=== PATIENT | female | born 1940 | race Caucasian/White ===

== ENCOUNTER 2023-11-14 04:11 | Emergency (ER) | payer OTHER, SELFPAY ==
[2023-11-14 04:13] VITALS: BP 169/109
[2023-11-14 06:10] VITALS: BP 152/88
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
== END 2023-11-14 06:35 | disposition home or self-care (01) ==
LOC: EMR 04:11
PROVIDERS: EMERGENCY PHYSICIAN Emergency Medicine; FAMILY PHYSICIAN Physician Assistant Medical
DX: S29.9XXA Unspecified injury of thorax, initial encounter (principal); W01.0XXA Fall on same level from slipping, tripping and stumbling without subsequent striking against object, initial encounter; R03.0 Elevated blood-pressure reading, without diagnosis of hypertension; E11.9 Type 2 diabetes mellitus without complications; J44.9 Chronic obstructive pulmonary disease, unspecified; F90.9 Attention-deficit hyperactivity disorder, unspecified type; F43.10 Post-traumatic stress disorder, unspecified; F41.9 Anxiety disorder, unspecified; Z79.01 Long term (current) use of anticoagulants; Z86.19 Personal history of other infectious and parasitic diseases; Z90.79 Acquired absence of other genital organ(s); Z98.0 Intestinal bypass and anastomosis status; Z88.5 Allergy status to narcotic agent; Z88.8 Allergy status to other drugs, medicaments and biological substances; Z91.040 Latex allergy status
CPT/HCPCS: 99283; 71101

== ENCOUNTER 2024-04-10 07:02 | Emergency (ER) | payer OTHER, SELFPAY ==
[2024-04-10 07:03] VITALS: BP 163/98
[2024-04-10 07:19] VITALS: BMI 38.7
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
[2024-04-10 09:37] VITALS: BP 165/95
[2024-04-10 09:39] VITALS: BP 165/95
== END 2024-04-10 09:40 | disposition home or self-care (01) ==
LOC: EMR 07:02
PROVIDERS: EMERGENCY PHYSICIAN Emergency Medicine
DX: M25.552 Pain in left hip (principal); E11.9 Type 2 diabetes mellitus without complications; J44.9 Chronic obstructive pulmonary disease, unspecified
CPT/HCPCS: 99283; 73502

== ENCOUNTER → 2024-04-21 18:09 | Outpatient (REF) | payer OTHER, SELFPAY | LOC: PAVMRI 18:09 | PROVIDERS: ATTENDING PHYSICIAN Orthopaedic Surgery; FAMILY PHYSICIAN Physician Assistant Medical | DX: M25.559 Pain in unspecified hip (principal) | CPT/HCPCS: 73721 ==

== ENCOUNTER 2024-05-24 07:02 | Inpatient (IN) | payer OTHER, SELFPAY ==
[2024-05-10 13:06] VITALS: BMI 31.6
[2024-05-10 14:20] LABS: Hemoglobin 13.5 g/dL (12.0-16.0); Mean Corp Hgb Conc. 33.8 g/dL (33.0-37.0); Mean Corpuscular Hgb 29.1 pg (27.0-31.0); Mean Corpuscular Volume 86.2 fL (81.0-99.0); Mean Platelet Volume 10.1 fL (7.4-10.4); Platelet Count 306 10^3/uL (130-400); Red Blood Cell Count 4.64 10^6/uL (4.20-5.40); Red Cell Dist. Width 13.6 % (11.5-14.5); White Blood Cell Count 7.6 10^3/uL (4.8-10.8)
[2024-05-10 14:43] LABS: Glycohemoglobin (HgbA1c) 7.2 % (4.0-5.6)
[2024-05-10 14:49] LABS: ALT (SGPT) 16 U/L (0-35); AST (SGOT) 22 U/L (14-36); Albumin 4.6 g/dl (3.5-5.0); Alkaline Phosphatase 103 U/L (38-126); Blood Urea Nitrogen 21 mg/dl (7-17); Calcium 9.8 mg/dl (8.4-10.2); Carbon Dioxide 31 mmol/L (22-30); Chloride 97 mmol/L (98-107); Estimated Creatinine Clearance 67 ml/min; Glucose 142 mg/dl (70-99); Potassium 4.3 mmol/L (3.5-5.1); Sodium 138 mmol/L (135-145); Total Bilirubin 0.6 mg/dl (0.2-1.3); Total Protein 7.2 g/dl (6.3-8.2); eGFR > 60.00
[2024-05-18 11:37] VITALS: BMI 31.6
[2024-05-24] VITALS (20 sets, daily range): BP systolic 88–159; BP diastolic 55–99; BMI 31.6
[2024-05-24 08:39] LABS: Glucose - Point of Care 170 mg/dl (70-99)
[2024-05-24] MEDS: NORMOSOL-R/PLASMALYTE-A 1000 IV ×2 (08:40→15:11)
[2024-05-24] MEDS: TYLENOL 650 MG PO ×5 (08:42→23:46)
[2024-05-24] MEDS: CELEBREX 200 MG PO (08:42)
[2024-05-24 12:40] LABS: Glucose - Point of Care 169 mg/dl (70-99)
[2024-05-24] MEDS: ROXICODONE 5 MG PO (13:00)
[2024-05-24 13:26] LABS: Glucose - Point of Care 169 mg/dl (70-99)
[2024-05-24] MEDS: NOVOLOG FLEXPEN-MODERATE RESISTANCE SC (14:01)
--- NOTE | 2024-05-24 14:07 | SUR.PHASEI ---
patient in pacu - holding for room, vss, started post op meds of tylenol, roxicodone - very talkative, spinal slow to recede now moving feet - some sensation to toes.
--- NOTE | 2024-05-24 14:24 | W.PN.UPDATE ---
Update Note
Progress Note Update
L hip OA s/p L JOSHUA w/ Dr Elder 05/24/24
DVT prophylaxis - Eliquis at modified dosing, b/l venous foot pumps
- Home Eliquis dosing to be resumed POD 3 if remaining hemodynamically stable
HTN - + parameters - monitor BP
PAF w/ palps � monitor on tele
- Continue Diltiazem
- Resume Eliquis as stated above
COPD w/ asthmatic component - monitor O2
- IS
NIDDM, diet controlled, A1c 7.2 - monitor BS
- Would benefit from Cefadroxil upon d/c
GERD - add Pepcid HS
Presumed fibromyalgia - monitor pain and adjust pain meds as indicated
Hypercholesterolemia
Dilated aortic root
Chronic peripheral edema
5cm cecal tubulovillous adenoma, s/p R colon resection
Diverticulosis w/ -itis
Cholelithiasis, asymptomatic
Hep C, treated in 2013
Scoliosis
DDD
Skin CA
ADHD
PTSD
Gout
Obesity, BMI 31.6
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
--- NOTE | 2024-05-24 15:20 | PTCARENOTE ---
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
extremities, bilateral pedal pulse +2 to palpation; Call rodriguez within reach; Patient oriented to room and unit; Bed in lowest position, wheels locked; Assessment ongoing
[2024-05-24] MEDS: ADDERALL 5 MG PO (15:45)
[2024-05-24] MEDS: ROXICODONE 10 MG PO ×2 (15:51→21:49)
[2024-05-24] MEDS: ANCEF 5 IV (17:16)
[2024-05-24] MEDS: NOVOLOG FLEXPEN-MODERATE RESISTANCE 3 UNITS SC (17:18)
[2024-05-24 17:19] LABS: Glucose - Point of Care 210 mg/dl (70-99)
[2024-05-24] MEDS: SENOKOT 17.2 MG PO (20:51)
[2024-05-24] MEDS: BACTROBAN 2% OINTMENT 1 APPLIC NASAL (20:51)
[2024-05-24] MEDS: COLACE 100 MG PO (20:51)
[2024-05-24] MEDS: ELIQUIS 2.5 MG PO (20:54)
[2024-05-24 21:36] LABS: Glucose - Point of Care 204 mg/dl (70-99)
[2024-05-24] MEDS: ADDERALL PO (21:43)
[2024-05-24] MEDS: VITAMIN D3 (cholecalciferol) 100 MCG PO (21:45)
[2024-05-24] MEDS: PEPCID 20 MG PO (21:46)
[2024-05-24] MEDS: CARDIZEM CD 240 MG PO (21:46)
[2024-05-25] VITALS (7 sets, daily range): BP systolic 123–160; BP diastolic 65–98; PULSE 91–98; O2SAT 95–98
[2024-05-25] MEDS: ANCEF 5 IV (02:14)
[2024-05-25] MEDS: TYLENOL 650 MG PO ×4 (03:36→15:09)
[2024-05-25 08:01] LABS: Glucose - Point of Care 175 mg/dl (70-99)
[2024-05-25] MEDS: ROXICODONE 10 MG PO (08:20)
[2024-05-25] MEDS: ADDERALL 5 MG PO ×2 (08:21→15:09)
[2024-05-25] MEDS: COLACE 100 MG PO (08:22)
[2024-05-25] MEDS: BUMEX 2 MG PO (08:22)
[2024-05-25] MEDS: ELIQUIS 2.5 MG PO (08:22)
[2024-05-25] MEDS: SENOKOT 17.2 MG PO (08:22)
[2024-05-25] MEDS: BACTROBAN 2% OINTMENT 1 APPLIC NASAL (08:22)
[2024-05-25] MEDS: NOVOLOG FLEXPEN-MODERATE RESISTANCE 1 UNITS SC ×2 (08:23→12:10)
--- NOTE | 2024-05-25 09:57 | CM ---
Addendum entered by Ila Benjamin RN 05/25/24 12:35:
Plan: [facility]N has accepted the patient on to their service.

Original Note:
Reviewed the chart notes and spoke with the patient at the bedside. The patient resides alone in a second floor apartment with 7+7+3 steps to enter. The patient reports DME to include: crutches which she uses to navigate the steps, rolling walker,
tub seat, and raised toilet. The patient reports no VN or SNF in the past. The patient confirmed her pharmacy of choice is the [facility]. VN consult placed. Patient requests [facility] services. Referral sent. If unable to accept the
patient, she is agreeable to VN. CM continues to be available to patient/family and is monitoring medical plan for needs at discharge.
Plan: Discharge to home with VN services.
[2024-05-25] MEDS: LIDOCAINE 4% PATCH 2 PATCH TOPICAL (11:05)
[2024-05-25 11:34] LABS: Glucose - Point of Care 174 mg/dl (70-99)
--- NOTE | 2024-05-25 14:27 | W.PN.ORTHO ---
Today's Communication / Plan
-
Appreciate cardio. Pt to start daily Metoprolol ER. No objections to d/c.
Work w/ therapy.
D/c possible for later today pending therapy eval. Will have VN services.
Assessment
.
Distal Motor Intact: Yes
Dressing:
Scant, old incisional bleeding.
Assessment:
L hip OA s/p L JOSHUA w/ Dr Elder 05/24/24
DVT prophylaxis - Eliquis at modified dosing, b/l venous foot pumps
- Home Eliquis dosing to be resumed POD 3 if remaining hemodynamically stable
HTN - + parameters - BPs overall stable
Correction: should be chronic A fib (not PAF as stated yesterday) - a fib noted on tele w/ HRs 90s-120s at rest and as high as 180 w/ ambulation
- Did consult cardio re: further medical mgmt. Will add daily Metoprolol ER 50 mg for chronic use. Has been on Diltiazem w/o interruption
- Resume Eliquis as stated above
COPD w/ asthmatic component - O2 stable on RA
- IS
NIDDM, diet controlled, A1c 7.2 - BS readings slightly elevated 2* surgical stress/IV steroids in OR
- Would expect BS readings to improve overall w/ time
- Would benefit from Cefadroxil upon d/c
GERD - added Pepcid HS
Presumed fibromyalgia - given sensitivity to Oxycodone, will do Tramadol for severe pain prn
- Add Lidoderm patches
- Continue Tylenol ATC
Hypercholesterolemia
Dilated aortic root
Chronic peripheral edema
5cm cecal tubulovillous adenoma, s/p R colon resection
Diverticulosis w/ -itis
Cholelithiasis, asymptomatic
Hep C, treated in 2013
Scoliosis
DDD
Skin CA
ADHD
PTSD
Gout
Obesity, BMI 31.6
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
Plan
.
Surgery / Date: L JOSHUA w/ Dr Elder 05/24/24
DVT Prophylaxis: Other (Eliquis )
Activity:
Out of bed.
PT/OT
Discharge Plan: Home w/ VN
Subjective
.
.:
Examined patient resting in bed earlier today.
Reported grogginess, disorientation w/ Oxycodone this AM - medication discontinued.
Chronic a fib w/ rapid HRs noted POD 1.
Vital Signs and Labs
.
Vital Signs and Labs:
Lab Results
05/10/24 13:05
05/10/24 13:05
Temp Pulse Resp BP Pulse Ox
97.5 F 101 16 123/82 98
05/25/24 11:25 05/25/24 11:25 05/25/24 11:25 05/25/24 11:25 05/25/24 11:25
Non-invasive Hgb result: 12.3
Physical Exam
-
HEENT: No pallor, cyanosis, or jaundice. Throat clear.
NECK: Supple. No JVD.
RESPIRATORY: Lungs clear to auscultation.
CVS: Irregular irregular.
ABDOMEN: Soft, non-tender. No distension. Obese.
EXTREMITIES: Strength equal, no calf pain with palpation/dorsiflexion. Calves soft.
SWAHILI TEACHER: AOx3. No focal deficits. business applications analyst grossly intact
--- NOTE | 2024-05-25 14:36 | W.PN.CD ---
Today's Communication / Plan
-
Add metoprolol ER 50 mg a day to usual meds
Treat pain and any anemia. Pt denies significant pain
From AFib perspective no objection to discharge per ortho guidelines
Ask pt to see Dr. Carroll in 2-6 weeks to assess tolerance to adding metoprolol
Impression / Plan
-
S/p L JOSHUA on 05/24
Perm AFib, rates at rest in the office 90s, on last Holter Av 88 but 18% above 100 bpm
- Rates with activity not well controlled but fortunately clinically well tolerated
HTN, overall well controlled
Subjective: No palps, CP, dyspnea
Physical Exam
Vital Signs/Labs
Vital Signs
Temp Pulse Resp BP Pulse Ox
97.5 F 101 16 123/82 98
05/25/24 11:25 05/25/24 11:25 05/25/24 11:25 05/25/24 11:25 05/25/24 11:25
05/10/24 13:05
05/10/24 13:05
Physical Exam
Constitutional: No acute distress
EENT: Anicteric
Cardiovascular: Rhythm/rate is irregular, S1S2 is normal and Rub absent
Respiratory: Respiratory effort normal and Lungs clear to auscul.
GI: Soft and Distention absent
Neuro/Psych: AO x 3
Data Reviewed
-
Date of Service: May 25, 2024
--- NOTE | 2024-05-25 14:36 | PTCARENOTE ---
Patient noted to be tachycardiac with activity and increasing with ambulation; Patient denies palpitations and shortness of breath; Patient states 'it feels good to be up'; Orthopedic PA-C notified; EKG completed per order; Cardiology consult
placed; Care ongoing
[2024-05-25] MEDS: TOPROL XL 50 MG PO (15:05)
--- NOTE | 2024-05-25 15:16 | W.DS.TRANS ---
DC Summary - Desktop Analyst
-
Discharge Instructions:
Sleep Apnea Risk Low
Discharge Diagnosis/Procedures L hip OA s/p L JOSHUA w/ Dr Elder 05/24/24
Diet Diabetic, Carb Controlled
Activity As tolerated,With Walker
Driving Restrictions Not until seen by your Dr
Bathing Restrictions OK to Shower
Other Services VN,PT
Instructions:
Stand-Alone Forms: Total Hip/Knee Replacement D/C
Changes to Home Medications: Yes
Discharge Medications:
DC Medications w/original date entered in [employer]
dextroamphetamine-amphetamine 5 mg tablet (Adderall) 5 mg PO TID 01/23/11
apixaban 5 mg tablet (Eliquis) 5 mg PO BID 06/05/21
ascorbic acid (vitamin C) 1,000 mg tablet (Vitamin C) 1,000 mg PO BID 05/18/24
biotin 10,000 mcg capsule 10,000 mcg PO DAILY 05/18/24
cholecalciferol (vitamin D3) 50 mcg (2,000 unit) capsule (Vitamin D3) 100 mcg PO HS 05/18/24
diltiazem HCl 240 mg capsule,extended release 24 hr 240 mg PO HS 05/18/24
fluticasone propionate 50 mcg/actuation nasal spray,suspension 1 spray intranasal PRN PRN sinus congestion 05/18/24
magnesium 200 mg tablet 200 mg PO HS 05/18/24
mupirocin 2 % topical ointment 1 applic topical BID 05/18/24
potassium gluconate 550 mg (90 mg) tablet 550 mg PO DAILY 05/18/24
zinc acetate 50 mg (zinc) capsule 50 mg PO DAILY 05/18/24
Saccharomyces boulardii 250 mg capsule (Florastor) 250 mg PO BID #14 caps 05/25/24
acetaminophen 500 mg tablet 1,000 mg (2 x 500 mg) PO Q6H #60 tabs 05/25/24
apixaban 2.5 mg tablet (Eliquis) 2.5 mg PO BID #3 tabs 05/25/24
bumetanide 2 mg tablet 2 mg PO DAILY #0 tabs 05/25/24
cefadroxil 500 mg capsule 500 mg PO BID #14 caps 05/25/24
docusate sodium 100 mg capsule 100 mg PO BID #30 caps 05/25/24
famotidine 20 mg tablet 20 mg PO HS #30 tabs 05/25/24
lidocaine 4 % topical patch 2 patch topical DAILY #30 ea 05/25/24
metoprolol succinate 50 mg tablet,extended release 24 hr 50 mg PO DAILY #30 tabs 05/25/24
ondansetron HCl 4 mg tablet 4 mg PO Q6H PRN nausea and vomiting #30 tabs 05/25/24
sennosides 8.6 mg tablet (Senna Laxative) 17.2 mg (2 x 8.6 mg) PO BID #30 tabs 05/25/24
tramadol 50 mg tablet 50 - 100 mg (1 - 2 x 50 mg) PO Q6H PRN moderate-severe pain #30 tabs 05/25/24
Home Medication Changes
Saccharomyces boulardii 250 mg capsule (Florastor) 250 mg PO BID #14 caps 05/25/24
acetaminophen 500 mg tablet 1,000 mg (2 x 500 mg) PO Q6H #60 tabs 05/25/24
apixaban 2.5 mg tablet (Eliquis) 2.5 mg PO BID #3 tabs 05/25/24 - until POD 3
cefadroxil 500 mg capsule 500 mg PO BID #14 caps 05/25/24
docusate sodium 100 mg capsule 100 mg PO BID #30 caps 05/25/24
famotidine 20 mg tablet 20 mg PO HS #30 tabs 05/25/24
lidocaine 4 % topical patch 2 patch topical DAILY #30 ea 05/25/24
metoprolol succinate 50 mg tablet,extended release 24 hr 50 mg PO DAILY #30 tabs 05/25/24
ondansetron HCl 4 mg tablet 4 mg PO Q6H PRN nausea and vomiting #30 tabs 05/25/24
sennosides 8.6 mg tablet (Senna Laxative) 17.2 mg (2 x 8.6 mg) PO BID #30 tabs 05/25/24
tramadol 50 mg tablet 50 - 100 mg (1 - 2 x 50 mg) PO Q6H PRN moderate-severe pain #30 tabs 05/25/24
Pending Results: No
== END 2024-05-25 17:10 | disposition home health service (06) | DRG 470 ==
LOC: 2 SOUTH 07:02
PROVIDERS: ADMITTING PHYSICIAN Orthopaedic Surgery; CONSULT PHYSICIAN Internal Medicine Cardiovascular Disease; FAMILY PHYSICIAN Physician Assistant Medical; REFERRING PHYSICIAN Internal Medicine Cardiovascular Disease
PROC: 0SRB03Z Replacement of Left Hip Joint with Ceramic Synthetic Substitute, Open Approach (ICD-10-PCS; 2024-05-24)
DX: M16.12 Unilateral primary osteoarthritis, left hip (principal); I48.21 Permanent atrial fibrillation; I10 Essential (primary) hypertension; E11.9 Type 2 diabetes mellitus without complications; J44.89 Other specified chronic obstructive pulmonary disease; F90.9 Attention-deficit hyperactivity disorder, unspecified type; F64.0 Transsexualism; F43.10 Post-traumatic stress disorder, unspecified; Z79.01 Long term (current) use of anticoagulants; Z79.899 Other long term (current) drug therapy; Z87.891 Personal history of nicotine dependence; Z90.49 Acquired absence of other specified parts of digestive tract; Z88.1 Allergy status to other antibiotic agents; Z88.5 Allergy status to narcotic agent; Z88.8 Allergy status to other drugs, medicaments and biological substances; Z91.040 Latex allergy status
CPT/HCPCS: 36415; 73502; 80053; 82962; 83036; 85027; 87070; 93005; 97110; 97116; 97162; 97166; 97530; 97535; C1776

== ENCOUNTER 2024-05-27 19:28 | Observation (INO) | payer OTHER, SELFPAY ==
[2024-05-27 16:26] VITALS: BP 142/96
[2024-05-27 16:49] LABS: % Basophils 0.6 % (0-2); % Eosinophils 2.2 % (0-6); % Immature Granulocytes 0.5 % (0-0.5); % Lymphocytes 25.4 % (20.5-51.1); % Monocytes 9.3 % (1.7-9.3); Absolute Basophils 0.1 10^3/uL (0-0.2); Absolute Eosinophils 0.2 10^3/uL (0-0.7); Absolute Lymphocytes 2.2 10^3/uL (1.2-3.4); Absolute Monocytes 0.8 10^3/uL (0.1-0.6); Absolute Neutrophils 5.3 10^3/uL (1.4-6.5); Hematocrit 33.2 % (37.0-47.0); Hemoglobin 11.3 g/dL (12.0-16.0); Mean Corpuscular Hgb 30.4 pg (27.0-31.0); Mean Corpuscular Volume 89.2 fL (81.0-99.0); Mean Platelet Volume 9.8 fL (7.4-10.4); Nucleated Red Blood Cells % 0 %; Platelet Count 228 10^3/uL (130-400); Red Blood Cell Count 3.72 10^6/uL (4.20-5.40); Red Cell Dist. Width 13.7 % (11.5-14.5); White Blood Cell Count 8.6 10^3/uL (4.8-10.8)
[2024-05-27 16:59] LABS: ALT (SGPT) 18 U/L (0-35); AST (SGOT) 35 U/L (14-36); Albumin 3.9 g/dl (3.5-5.0); Alkaline Phosphatase 80 U/L (38-126); Blood Urea Nitrogen 24 mg/dl (7-17); Calcium 8.7 mg/dl (8.4-10.2); Carbon Dioxide 29 mmol/L (22-30); Chloride 95 mmol/L (98-107); Glucose 159 mg/dl (70-99); Sodium 135 mmol/L (135-145); Total Bilirubin 0.5 mg/dl (0.2-1.3); Total Protein 6.4 g/dl (6.3-8.2); eGFR > 60.00
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
--- NOTE | 2024-05-27 17:29 | CM ---
Addendum entered by Soha Flower RN 05/27/24 17:32:
CM will send ED note via [facility] for preliminary review.
Original Note:
CM met with patient' daughter Julia. Daughter stated that patient was recently discharged to home two days ago with Milidn JUAN CARLOS. Daughter stated that patient cannot care for herself. As per daughter patient is a ' hoarder' and there are multiple
concerns with the safety of the home.
Daughter would be agreeable to placement and patient is agreeable to placement. Patient's daughter would prefer [facility], but would be agreeable to [facility], [facility] or [facility].
CM is unable at this time to send referral as no information is available at this time.
CM will continue to follow.
--- NOTE | 2024-05-27 18:00 | HPS.HSE ---
Family Physician
-
Family Physician: Herlinda Garcia
Chief Complaint
-
Ambulatory dysfunction from recent left knee replacement
History of Present Illness
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 She is unable to care for herself at home (lives alone) and is here
requesting for rehab placement.
She has no other concerns at this time and states her pain is relatively well controlled.
Medical History
Past Medical History
Past Medical History: Reports Other
Additional Past Medical History:
transgender
atrial fibrillation
type 2 diabetes
COPD and L hip replacement 3 days OPERATOR PREFINISH by Dr Elder
Past Surgical History: Reports Orthopedic and Other
Social History
Tobacco: Non-smoker
Alcohol: None
Living: Alone
Family History
Family History: Not pertinent
Allergies / Home Medications
Allergies reflects when Allergies were last updated in [employer].
Home Medications with original date entered in [employer]
Allergy/Medication List:
Allergies
Allergy/AdvReac Type Severity Reaction Status Date / Time
alcohol [Alcohol] Allergy Unknown Verified 05/27/24 16:26
codeine [Codeine] Allergy SWOLLEN Verified 05/27/24 16:26
LYMPH NODES
fentanyl Allergy Anger/Aggre Verified 05/27/24 16:26
ssiveness
latex [Latex] Allergy Rash Verified 05/27/24 16:26
Opioids - Morphine Analogues Allergy Emotional Verified 05/27/24 16:26
reaction/Aggressiveness;
Home Medications
dextroamphetamine-amphetamine 5 mg tablet (Adderall) 5 mg PO TID 01/23/11
apixaban 5 mg tablet (Eliquis) 5 mg PO BID 06/05/21
ascorbic acid (vitamin C) 1,000 mg tablet (Vitamin C) 1,000 mg PO BID 05/18/24
biotin 10,000 mcg capsule 10,000 mcg PO DAILY 05/18/24
cholecalciferol (vitamin D3) 50 mcg (2,000 unit) capsule (Vitamin D3) 100 mcg PO HS 05/18/24
diltiazem HCl 240 mg capsule,extended release 24 hr 240 mg PO QPM 05/18/24
fluticasone propionate 50 mcg/actuation nasal spray,suspension 1 spray intranasal DAILYPRN PRN sinus congestion 05/18/24
magnesium 200 mg tablet 200 mg PO HS 05/18/24
mupirocin 2 % topical ointment 1 applic topical BID 05/18/24
potassium gluconate 550 mg (90 mg) tablet 550 mg PO DAILY 05/18/24
zinc acetate 50 mg (zinc) capsule 50 mg PO DAILY 05/18/24
Saccharomyces boulardii 250 mg capsule (Florastor) 250 mg PO BID #14 caps 05/25/24
bumetanide 2 mg tablet 2 mg PO DAILY #0 tabs 05/25/24
cefadroxil 500 mg capsule 500 mg PO BID #14 caps 05/25/24
docusate sodium 100 mg capsule 100 mg PO BID #30 caps 05/25/24
famotidine 20 mg tablet 20 mg PO HS #30 tabs 05/25/24
lidocaine 4 % topical patch 2 patch topical DAILY #30 ea 05/25/24
metoprolol succinate 50 mg tablet,extended release 24 hr 50 mg PO DAILY #30 tabs 05/25/24
ondansetron HCl 4 mg tablet 4 mg PO Q6H PRN nausea and vomiting #30 tabs 05/25/24
sennosides 8.6 mg tablet (Senna Laxative) 17.2 mg (2 x 8.6 mg) PO BID #30 tabs 05/25/24
tramadol 50 mg tablet 50 - 100 mg (1 - 2 x 50 mg) PO Q6H PRN moderate-severe pain #30 tabs 05/25/24
acetaminophen 500 mg tablet 1,000 mg PO Q6HPRN PRN mild pain/fever 05/27/24
Review of Systems
-
Musculoskeletal: Reports See HPI
Physical Exam
Vital Signs
Vital Signs
Temp Pulse Resp BP Pulse Ox
36.7 C 106 20 142/96 99
05/27/24 16:26 05/27/24 16:26 05/27/24 16:26 05/27/24 16:26 05/27/24 16:26
Physical Exam
General: Well Developed, Well Nourished, No Apparent Distress and Conversant
HEENT: NormoCephalic, Moist mucous membranes and Atraumatic
Respiratory: Clear and Non Labored Respirations; No Accessory Resp Muscle Use
Cardiac: S1/S2 and Regular Rhythm; No Murmur or Rub
GI: Soft, Non Tender, Non Distended and Normal Bowel Sounds; No Organomegaly
Rectal: Deferred by Provider
Musculoskeletal: No Clubbing, No Cyanosis and No Edema
Skin: No Rash
Neuro: Awake and Alert
Psych: Calm and Intact Judgment/Insight
Laboratory Results
-
05/27/24 16:37
05/27/24 16:37
Laboratory Results
Total Bilirubin 0.5 mg/dl (0.2-1.3) 05/27/24 16:37
AST 35 U/L (14-36) 05/27/24 16:37
ALT 18 U/L (0-35) 05/27/24 16:37
Alkaline Phosphatase 80 U/L (38-126) 05/27/24 16:37
Data Reviewed
-
Lab Data: Labs Reviewed by me
Impression/Plan
-
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 She is unable to care for herself at home (lives alone) and is here
requesting for rehab placement.
She has no other concerns at this time and states her pain is relatively well controlled.
A/P:
# Ambulatory dysfunction in setting of recent left hip replacement 3 days prior to admission
Continue cefadroxil total 7 days per Ortho DC instruction
PT OT eval
CM for Dispo
Other medical conditions:
# HTN
Continue prior to admission Cardizem/Toprol with holding parameter
# PAF
Continue OPERATOR PREFINISH Cardizem/Toprol and Eliquis
# COPD w/ asthmatic component
# NIDDM, diet controlled
A1c 7.2
# GERD
# Presumed fibromyalgia - monitor pain and adjust pain meds as indicated
DVT prophylaxis: OPERATOR PREFINISH Eliquis
FC
[2024-05-27] MEDS: ULTRAM 100 MG PO (19:41)
[2024-05-27 19:45] VITALS: BP 136/95; BMI 31.8
[2024-05-27 19:47] VITALS: BP 136/95
[2024-05-27] MEDS: SENOKOT 17.2 MG PO (22:31)
[2024-05-27] MEDS: ELIQUIS PO (22:33)
[2024-05-27] MEDS: FLORASTOR 250 MG PO (22:34)
[2024-05-27] MEDS: COLACE 100 MG PO (22:34)
[2024-05-27] MEDS: PEPCID 20 MG PO (22:34)
[2024-05-28 00:26] VITALS: BP 128/78
[2024-05-28] MEDS: TYLENOL 1000 MG PO ×2 (02:56→21:17)
[2024-05-28] MEDS: ULTRAM 50 MG PO (05:55)
[2024-05-28 06:00] VITALS: BMI 31.1
[2024-05-28 06:20] LABS: Hematocrit 33.8 % (37.0-47.0); Hemoglobin 11.4 g/dL (12.0-16.0); Mean Corp Hgb Conc. 33.7 g/dL (33.0-37.0); Mean Corpuscular Hgb 29.9 pg (27.0-31.0); Mean Corpuscular Volume 88.7 fL (81.0-99.0); Platelet Count 240 10^3/uL (130-400); Red Blood Cell Count 3.81 10^6/uL (4.20-5.40); Red Cell Dist. Width 13.5 % (11.5-14.5); White Blood Cell Count 9.6 10^3/uL (4.8-10.8)
[2024-05-28 06:53] LABS: Blood Urea Nitrogen 18 mg/dl (7-17); Calcium 9.1 mg/dl (8.4-10.2); Carbon Dioxide 28 mmol/L (22-30); Chloride 100 mmol/L (98-107); Estimated Creatinine Clearance 92 ml/min; Glucose 154 mg/dl (70-99); Potassium 4.6 mmol/L (3.5-5.1); Sodium 139 mmol/L (135-145); eGFR > 60.00
[2024-05-28 08:52] VITALS: BP 123/87
[2024-05-28] MEDS: ADDERALL 5 MG PO (08:54)
[2024-05-28] MEDS: FLORASTOR 250 MG PO ×2 (08:54→20:55)
[2024-05-28] MEDS: NON-FORMULARY ITEM 1 UNIT PO ×2 (08:54→20:56)
[2024-05-28] MEDS: BUMEX PO (08:55)
[2024-05-28] MEDS: SENOKOT 17.2 MG PO ×2 (08:55→20:55)
[2024-05-28] MEDS: COLACE 100 MG PO ×2 (08:55→20:55)
[2024-05-28] MEDS: TOPROL XL 50 MG PO (08:56)
[2024-05-28] MEDS: ELIQUIS 5 MG PO ×2 (08:56→20:55)
--- NOTE | 2024-05-28 09:43 | W.PN.HOSP.TC ---
Today's Communication/Plan
-
see A/P
Assessment / Plan
Assessment / Plan
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 She is unable to care for herself at home (lives alone) and is here
requesting for rehab placement.
She has no other concerns at this time and states her pain is relatively well controlled.
A/P:
# Ambulatory dysfunction in setting of recent left hip replacement 3 days prior to admission
Continue cefadroxil total 7 days per Ortho DC instruction
PT OT eval
CM for Dispo
Other medical conditions:
# HTN
Continue prior to admission Cardizem/Toprol with holding parameter
# PAF
Continue QUALITY IMPROVEMENT ENGINEER Cardizem/Toprol and Eliquis
# COPD w/ asthmatic component
# NIDDM, diet controlled
A1c 7.2
# GERD
# Presumed fibromyalgia - monitor pain and adjust pain meds as indicated
DVT prophylaxis: QUALITY IMPROVEMENT ENGINEER Eliquis
FC
Anticipated Discharge: 24 - 48 hours
Subjective/Interval History
-
Date of Service: May 28, 2024
Objective Data
-
Labs:
Laboratory Results
05/28/24
05:52
WBC 9.6
Hgb 11.4 L
Hct 33.8 L
Plt Count 240
Sodium 139
Potassium 4.6
Chloride 100
Carbon Dioxide 28
BUN 18 H
Creatinine 0.7
Glucose 154 H
Calcium 9.1
Vital Signs:
Vital Signs
Temp Pulse Resp BP Pulse Ox
36.8 C 82 18 123/87 98
05/28/24 08:52 05/28/24 08:56 05/28/24 08:52 05/28/24 08:56 05/28/24 08:52
Review of Systems
-
All other systems: Reviewed and negative
Physical Exam
-
General: Well Developed, Well Nourished, No Apparent Distress, Comfortable and Conversant; Negative Respiratory Distress
HEENT: Normocephalic, Atraumatic, Nose Appears Normal and Ears Appear Normal; Negative Oxygen
Respiratory: Clear to Auscultation and Non Labored Respirations; Negative Accessory Resp Muscle Use
Cardiac: Regular Rhythm and S1/S2
GI: Soft, Nontender, Nondistended and Normal Bowel Sounds
Skin: Warm and Dry
Neuro: Awake, Alert, Oriented and AO x 3
Psych: Calm and Intact Judgement/Insight
Data Reviewed
-
Labs: Labs Reviewed by me
--- NOTE | 2024-05-28 10:21 | CM ---
Addendum entered by Marilyn Maldonado 05/28/24 14:07:
updated clinicals sent to SNF; no beds today at [facility] awaiting acceptance and will need authorization.
Addendum entered by Marilyn Maldonado 05/28/24 12:05:
continue to await PT assessment, OT assessment sent to SNF. Awaiting response.
Original Note:
Patient daughter called. CM updated that [facility] was intrested but needed more information. [facility] with no beds, no answer from [facility] or [facility]. CM reviewed [facility]/OBS form and will email to daughter at [email or web address]. CM reviewed PAC data and
daughter requested CM move ahead with [facility] if they will accept. CM will call facility and patient will need auth prior to admission. CM will continue to follow for discharge planning needs.
Plan;SNF; will need auth
[2024-05-28] MEDS: ADDERALL PO (13:42)
[2024-05-28] MEDS: ULTRAM 100 MG PO (14:34)
[2024-05-28 15:32] VITALS: BMI 31.1
[2024-05-28 16:06] VITALS: BP 164/94; BMI 31.1
[2024-05-28] MEDS: CARDIZEM CD 240 MG PO (18:02)
[2024-05-28] MEDS: PEPCID 20 MG PO (21:13)
[2024-05-28 23:18] VITALS: BP 138/77
[2024-05-29 06:00] VITALS: BMI 30.8
[2024-05-29 07:00] VITALS: BP 153/91
[2024-05-29 07:41] LABS: Hematocrit 34.3 % (37.0-47.0); Hemoglobin 11.6 g/dL (12.0-16.0); Mean Corp Hgb Conc. 33.8 g/dL (33.0-37.0); Mean Corpuscular Hgb 30.1 pg (27.0-31.0); Mean Corpuscular Volume 88.9 fL (81.0-99.0); Mean Platelet Volume 9.6 fL (7.4-10.4); Platelet Count 258 10^3/uL (130-400); Red Blood Cell Count 3.86 10^6/uL (4.20-5.40); Red Cell Dist. Width 13.7 % (11.5-14.5); White Blood Cell Count 8.1 10^3/uL (4.8-10.8)
[2024-05-29 08:16] LABS: Blood Urea Nitrogen 17 mg/dl (7-17); Calcium 9.1 mg/dl (8.4-10.2); Carbon Dioxide 28 mmol/L (22-30); Chloride 99 mmol/L (98-107); Estimated Creatinine Clearance 91 ml/min; Glucose 151 mg/dl (70-99); Potassium 4.6 mmol/L (3.5-5.1); Sodium 139 mmol/L (135-145); eGFR > 60.00
[2024-05-29] MEDS: ADDERALL 5 MG PO ×2 (09:14→12:14)
[2024-05-29] MEDS: FLORASTOR 250 MG PO (09:16)
[2024-05-29] MEDS: SENOKOT 17.2 MG PO (09:16)
[2024-05-29] MEDS: COLACE 100 MG PO (09:16)
[2024-05-29] MEDS: ELIQUIS 5 MG PO (09:16)
[2024-05-29] MEDS: BUMEX 2 MG PO (09:16)
[2024-05-29] MEDS: TOPROL XL 50 MG PO (09:17)
[2024-05-29] MEDS: NON-FORMULARY ITEM 1 UNIT PO (09:17)
--- NOTE | 2024-05-29 11:52 | CM ---
Addendum entered by Audrey Nieto 05/29/24 14:41:
Patient has been approved and accepted at [facility] today, ambulance Auth received [id number] Auth for 5 days skilled 05/29-06/02 Auth [id number].
[facility]
Report [id number]

Original Note:
manager harbor reviewed patient's chart and spoke with patient and patient is for skilled placement, gearcase assembler reviewed with patient possible clutter v's hoarding in home and patient and daughter both agree that patient can maneuver around home
with a walker and plan is for patient to go to a skilled facility and then return to home when stable. Options reviewed with patient and patient has selected [facility], referral sent to [facility] and they have accepted patient today. Will need Auth.
Plan; Skilled placement at [facility] today.
--- NOTE | 2024-05-29 13:59 | W.PN.HOSP.TC ---
Addendum entered and electronically signed by Peggy Pickard MD 05/29/24 16:21:
D/W Case management. Pt has bed and auth
]Completed papers and printed script for [facility]
More than 30 minutes spent in discharge including
Final examination of the patient
Summarizing hospital stay
Instructions for continuing care to all relevant caregivers
Preparation of discharge records, prescriptions, and referral forms
Total time spent (in minutes): 34 min
Original Note:
Today's Communication/Plan
-
Medically stable for discharge
Assessment / Plan
Assessment / Plan
84-year-old transgender female with ambulatory dysfunction requesting for rehab. Patient had left hip replacement 3 days prior to admission by Dr. Elder
CVS: S1-S2 normal
Chest: CTA B/L
Abdomen: Soft, NT / Bowel sounds present
Extremities: mild p;edal edema, left hip, mild shadowing,
# Ambulatory dysfunction in the setting of recent left hip replacement 3 days prior to admission
Patient is on cefadroxil 7 days per orthopedic instructions
PT OT
Pain control with tramadol
# Hypertension-continue Cardizem and Toprol
# Paroxysmal atrial fibrillation-continue Cardizem and Toprol and Eliquis
# COPD/asthma-stable
# Diet-controlled diabetes hemoglobin A1c 7.2. Accuchecks and SSI
# GERD-continue Pepcid
# ADD-on Adderall
# Chronic pain
# History of concussions
# Hepatitis C-treated
# Anxiety/depression/PTSD
# Osteoarthritis/scoliosis
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
# Ex-smoker
# DVT prophylaxis-Eliquis
# Full code
Discussed with case management
D/W PT OT at bed side
Anticipated Discharge: Today
Subjective/Interval History
-
Date of Service: May 29, 2024
Objective Data
-
Labs:
Laboratory Results
05/29/24
07:20
WBC 8.1
Hgb 11.6 L
Hct 34.3 L
Plt Count 258
Sodium 139
Potassium 4.6
Chloride 99
Carbon Dioxide 28
BUN 17
Creatinine 0.7
Glucose 151 H
Calcium 9.1
Vital Signs:
Vital Signs
Temp Pulse Resp BP Pulse Ox
97.7 F 103 20 153/91 96
05/29/24 07:00 05/29/24 09:16 05/29/24 07:00 05/29/24 09:16 05/29/24 07:00
I&O
05/28/24 05/29/24 05/30/24
06:59 06:59 06:59
Intake Total 360 / 360
Output Total 525 / 525
Balance -165 / -165
[2024-05-29] MEDS: ULTRAM 100 MG PO (14:50)
[2024-05-29 15:00] VITALS: BP 161/107
--- NOTE | 2024-05-29 16:20 | W.DS.TRANS ---
Addendum entered and electronically signed by Peggy Pickard MD 05/30/24 17:56:
Dictation-[id number]
Original Note:
DC Summary - Transition Of Care Specialist
-
Discharge Instructions:
Sleep Apnea Risk Intermediate
Discharge Diagnosis/Procedures Ambulatory dysfunction with recent left hip
replacement
Hypertension
Paroxysmal atrial fibrillation
COPD/asthma
GERD
ADD
Chronic pain
Diet As tolerated
Additional Activity Follow postoperative instructions
Driving Restrictions No driving
Other Services PT,OT
Instructions:
Stand-Alone Forms:
Changes to Home Medications: Yes
Discharge Medications:
DC Medications w/original date entered in [employer]
dextroamphetamine-amphetamine 5 mg tablet (Adderall) 5 mg PO TID ADHD 01/23/11
apixaban 5 mg tablet (Eliquis) 5 mg PO BID Blood Clot Prevention/Tx 06/05/21
ascorbic acid (vitamin C) 1,000 mg tablet (Vitamin C) 1,000 mg PO BID Supplement 05/18/24
biotin 10,000 mcg capsule 10,000 mcg PO DAILY Supplement 05/18/24
cholecalciferol (vitamin D3) 50 mcg (2,000 unit) capsule (Vitamin D3) 100 mcg PO HS Supplement 05/18/24
diltiazem HCl 240 mg capsule,extended release 24 hr 240 mg PO QPM Heart Disease/Condition 05/18/24
fluticasone propionate 50 mcg/actuation nasal spray,suspension 1 spray intranasal DAILYPRN PRN sinus congestion 05/18/24
magnesium 200 mg tablet 200 mg PO HS Supplement 05/18/24
mupirocin 2 % topical ointment 1 applic topical BID Infection 05/18/24
zinc acetate 50 mg (zinc) capsule 50 mg PO DAILY Supplement 05/18/24
lidocaine 4 % topical patch 2 patch topical DAILY Pain 05/28/24
Saccharomyces boulardii 250 mg capsule (Florastor) 250 mg PO BID Supplement #14 caps 05/29/24
acetaminophen 500 mg tablet 1,000 mg (2 x 500 mg) PO Q6HPRN PRN mild pain #0 tabs 05/29/24
bumetanide 2 mg tablet 2 mg PO DAILY edema #0 tabs 05/29/24
cefadroxil 500 mg capsule 500 mg PO BID post op #14 caps 05/29/24
docusate sodium 100 mg capsule 100 mg PO BID Constipation #30 caps 05/29/24
famotidine 20 mg tablet 20 mg PO HS gerd #30 tabs 05/29/24
metoprolol succinate 50 mg tablet,extended release 24 hr 50 mg PO DAILY Blood pressure #30 tabs 05/29/24
sennosides 8.6 mg tablet (Senna Laxative) 17.2 mg (2 x 8.6 mg) PO BID Constipation #30 tabs 05/29/24
tramadol 50 mg tablet 50 mg PO Q6HPRN PRN MODERATE PAIN #10 tabs 05/29/24
Home Medication Changes
potassium stopped
Pending Results: No
[2024-05-29] MEDS: CARDIZEM CD 240 MG PO (17:06)
== END 2024-05-29 18:20 ==
LOC: 4 WEST ACU 19:28
PROVIDERS: ADMITTING PHYSICIAN Internal Medicine; ATTENDING PHYSICIAN Hospitalist; EMERGENCY PHYSICIAN Emergency Medicine; FAMILY PHYSICIAN Physician Assistant Medical
DX: R26.2 Difficulty in walking, not elsewhere classified (principal); I10 Essential (primary) hypertension; T84.84XA Pain due to internal orthopedic prosthetic devices, implants and grafts, initial encounter; Y83.1 Surgical operation with implant of artificial internal device as the cause of abnormal reaction of the patient, or of later complication, without mention of misadventure at the time of the procedure; Y92.9 Unspecified place or not applicable; R62.7 Adult failure to thrive; I48.0 Paroxysmal atrial fibrillation; E11.9 Type 2 diabetes mellitus without complications; J44.89 Other specified chronic obstructive pulmonary disease; F64.0 Transsexualism; M19.90 Unspecified osteoarthritis, unspecified site; M41.9 Scoliosis, unspecified; F10.11 Alcohol abuse, in remission; K21.9 Gastro-esophageal reflux disease without esophagitis; F43.10 Post-traumatic stress disorder, unspecified; F41.9 Anxiety disorder, unspecified; F32.A Depression, unspecified; R53.1 Weakness; F90.9 Attention-deficit hyperactivity disorder, unspecified type; Z96.642 Presence of left artificial hip joint; Z60.2 Problems related to living alone; Z75.1 Person awaiting admission to adequate facility elsewhere; Z87.890 Personal history of sex reassignment; Z86.0101 Personal history of adenomatous and serrated colon polyps; Z90.49 Acquired absence of other specified parts of digestive tract; Z86.19 Personal history of other infectious and parasitic diseases; Z91.040 Latex allergy status; Z88.5 Allergy status to narcotic agent; Z91.048 Other nonmedicinal substance allergy status; Z79.01 Long term (current) use of anticoagulants; Z79.51 Long term (current) use of inhaled steroids; G89.29 Other chronic pain; Z87.820 Personal history of traumatic brain injury; Z87.891 Personal history of nicotine dependence
CPT/HCPCS: 80048; 80053; 83735; 85025; 85027; 97116; 97535; 99284; G0378

== ENCOUNTER 2024-06-10 22:08 | Emergency (ER) | payer OTHER, SELFPAY ==
[2024-06-10 22:18] VITALS: BP 136/82
[2024-06-10 22:44] LABS: Urine Albumin 2+ (Neg - Trace); Urine Bilirubin Negative (Negative); Urine Character Very Cloudy (Clear); Urine Color Red; Urine Glucose Negative (Negative); Urine Ketone Trace (Negative); Urine Leukocyte 2+ (Negative); Urine Nitrite Positive (Negative); Urine Occult Blood 4+ (Negative); Urine Urobilinogen Negative (Neg - 1+)
[2024-06-10 22:55] LABS: Urine Bacteria Many (Negative); Urine Red Blood Cell 70-80 /HPF (0-2); Urine White Cell 40-50 /HPF (0-5)
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
--- NOTE | 2024-06-10 23:45 | EDRN ---
Patient ambulated into the restroom using waker sample collected, back in bed resting comfortably, provided warm blanket
[2024-06-11] MEDS: CEFTIN 500 MG PO (00:33)
== END 2024-06-11 01:27 | disposition home or self-care (01) ==
LOC: EMR 22:08
PROVIDERS: EMERGENCY PHYSICIAN Emergency Medicine; FAMILY PHYSICIAN Physician Assistant Medical
DX: N39.0 Urinary tract infection, site not specified (principal); R03.0 Elevated blood-pressure reading, without diagnosis of hypertension; F43.10 Post-traumatic stress disorder, unspecified; F90.9 Attention-deficit hyperactivity disorder, unspecified type; E11.9 Type 2 diabetes mellitus without complications; F64.0 Transsexualism; J42 Unspecified chronic bronchitis; F41.9 Anxiety disorder, unspecified; Z98.890 Other specified postprocedural states; Z86.19 Personal history of other infectious and parasitic diseases; Z98.0 Intestinal bypass and anastomosis status; Z88.5 Allergy status to narcotic agent; Z88.8 Allergy status to other drugs, medicaments and biological substances; Z91.040 Latex allergy status
CPT/HCPCS: 99283; 81003; 81015; 87077; 87086

== ENCOUNTER → 2024-12-01 13:55 | Outpatient (REF) | payer OTHER, SELFPAY | LOC: HWRAD 13:55 | PROVIDERS: ATTENDING PHYSICIAN Internal Medicine Cardiovascular Disease; FAMILY PHYSICIAN Physician Assistant Medical | DX: I77.810 Thoracic aortic ectasia (principal) | CPT/HCPCS: 71250 ==

== ENCOUNTER 2025-06-22 05:11 | Emergency (ER) | payer OTHER, SELFPAY ==
[2025-06-22 05:22] VITALS: BP 160/84
[2025-06-22 05:34] VITALS: BMI 28.1
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
[2025-06-22 05:45] VITALS: BP 138/87
[2025-06-22 06:00] VITALS: BP 131/91
[2025-06-22] MEDS: TYLENOL 1000 MG PO (06:09)
[2025-06-22 06:16] LABS: Hematocrit 42.2 % (37.0-47.0); Hemoglobin 13.9 g/dL (12.0-16.0); Mean Corp Hgb Conc. 32.9 g/dL (33.0-37.0); Mean Corpuscular Volume 89.0 fL (81.0-99.0); Nucleated Red Blood Cells % 0 %; Platelet Count 214 10^3/uL (130-400); Red Cell Dist. Width 13.7 % (11.5-14.5)
[2025-06-22 06:48] LABS: Blood Urea Nitrogen 19 mg/dl (7-17); Calcium 9.1 mg/dl (8.4-10.2); Carbon Dioxide 29 mmol/L (22-30); Chloride 100 mmol/L (98-107); Estimated Creatinine Clearance 75 ml/min; Glucose 137 mg/dl (70-99); Potassium 4.3 mmol/L (3.5-5.1); Sodium 135 mmol/L (135-145); eGFR > 60.00
[2025-06-22 06:57] LABS: COVID-19 Antigen Negative (Negative)
[2025-06-22 07:00] VITALS: BP 133/83
== END 2025-06-22 07:28 | disposition home or self-care (01) ==
LOC: EMR 05:11
PROVIDERS: Physician Assistant; EMERGENCY PHYSICIAN Student in an Organized Health Care Education/Training Program
DX: J10.1 Influenza due to other identified influenza virus with other respiratory manifestations (principal); R00.2 Palpitations; E11.9 Type 2 diabetes mellitus without complications; I48.91 Unspecified atrial fibrillation; I10 Essential (primary) hypertension; E78.5 Hyperlipidemia, unspecified; J44.89 Other specified chronic obstructive pulmonary disease; B19.20 Unspecified viral hepatitis C without hepatic coma; F90.9 Attention-deficit hyperactivity disorder, unspecified type; F43.10 Post-traumatic stress disorder, unspecified; F41.9 Anxiety disorder, unspecified; Z79.01 Long term (current) use of anticoagulants
CPT/HCPCS: 99284; 71046; 80048; 85025; 87502; 87811; 93005